=== PATIENT | male | born 1945 | race Caucasian/White ===

== ENCOUNTER 2021-03-05 15:28 | Inpatient (IN) | payer OTHER ==
[~2021-03-05] VITALS: Ht 170.2 cm; Wt 75.4 kg
--- NOTE | 2021-03-06 07:21 | NUR ---
ADMISSION SUMMARY Pt was admitted to [facility] from [facility] on 03/06/21 at 0507. Vital signs were obtained; results within normal limits. Skin assessment was performed; results unremarkable. Pt was cooperative with admission process. Pt signed voluntary treatment form. Pt stated he does not currently have thoughts to harm himself and contracted for safety with staff. Pt is high fall risk. Fall precautions are in place. Will continue to monitor.
[2021-03-06 08:21] VITALS: BP 126/80
[2021-03-06 08:22] LABS: CHOLESTEROL 147 mg/dL (<200); HDL CHOLESTEROL 50 mg/dL (>40); LDL CHOLESTEROL 79 mg/dL (<100); TC:HDL 2.9 Ratio (Not establshd); TRIGLYCERIDE 93 mg/dL (<150); VLDL 19 mg/dL (<40)
[2021-03-06 08:23] VITALS: BP 126/80
[2021-03-06 09:09] VITALS: BP 126/80
--- NOTE | 2021-03-06 10:11 | NUR ---
RESUMMED CARE FROM OVERNIGHT SHIFT THIS AM, PATIENT ALERT ORIENTED TIMES 4. PATIENT DENIES SI/HI/AH/VH AT PRESENT, PATIENT ATE BREAKFAST TOOK MEDICATION WITHOUT INCIDENCE. PATIENTS ABDOMEN SOFT BOWEL SOUNDS PRESENT, PATIENTS LUNGS CLEAR. PATIENT DENIES DEPRESSION BUT HAS ANXIETY WHICH HE RATES A 5. PATIENT CALM COOPERATIVE PARTICIPATED IN GROUPS. WILL CONTINUE TO MONITOR PATIENT FOR SAFETY AND BEHAVIORS.
[2021-03-06 11:32] LABS: INR 2.59
[2021-03-06 19:06] VITALS: BP 110/51
[2021-03-06 19:07] VITALS: BP 149/62
[2021-03-06 20:30] VITALS: BP 149/62
--- NOTE | 2021-03-07 01:34 | NUR ---
PATIENT HAS BEEN UP IN HIS ROOM THIS EVENING. HE IS A/0X4. PATIENT WEARS 3 LIDODERM PATCHES AND ALL WERE REMOVED PER PROTOCOL AT HS.PATIENT CAME TO NURSE STATION AND REQUESTED TO CALL HIS . PATIENT SPOKE WITH AND WENT BACK TO HIS ROOM. HE DID VISIT WITH ANOTHER PATIENT IN THE HALLWAY AND THEY DISCUSSED THEIR PARKINSONS. PATIENT HAS BEEN CALM AND COOPERATIVE. HE WAS GIVEN NORCO AT HS FOR 6/10 PAIN IN BACK AND NECK. PATIENT IS INDEPENDENT WITH CARES. PATIENT TOOK MEDS WHOLE WITH WATER. HE DOES HAVE TREMORS IN BILATERAL HANDS. AMANTIDINE AND WARFARIN STARTED THIS EVENING AT HS. DENIES SI/HI/AVH. BED IN LOW POSITION. ROUTINE ROUNDS TO ASSESS SAFETY AND STATUS OF PATIENT.
[2021-03-07 09:03] VITALS: BP 123/73
--- NOTE | 2021-03-07 10:57 | NUR ---
Nutrition: pt admitted to [facility] with SI, depression. Hx Parkinsons. Hand tremors noted. Pt eating very well, 100% of meals. Does need some assistance with opening containers etc but able to feed self. Reports UBW 170#, current 166#. Pt feels weight loss attributed to length of time it takes him to eat and need for assist. He refuses supplements and is not concerned about this loss. On Vitamin D/C, MVI, folic acid. Consider low nutrition risk at this time.
--- NOTE | 2021-03-07 12:16 | NUR ---
APPROACHED NURSES STATIN AT APPROX 0815 REQUESTING MEDICATION FOR ANXIETY. DID SPEAK WITH THIS NURSE 1;1 AT THIS TIME REPORTING FEELING AN INTERNAL RESTLESSNESS AND STATES " I CAN'T SIT STILL-I HAVE BEEN PACING UP AND DOWN THE HALLWAYS" TEARFUL-STATING "THIS IS THE WORSE I HAVE EVER FELT AND I WANT TO BE SURE THE DR KNOWS ABOUT IT" DENIES SI/SH/HI- KLONOPIN 1MG PO PRN AT APPOX 0830 FOR ABOVE REPORTED-WHEN ASKED ABOUT WHAT ELSE HE NEEDED OR THOUGHTNWOULD HELP IN REDUCING ANXIETY HE REPORTS WANTING A SHOWER"I HAVEN'T HAD ONE SINCE I GOT HERE" WAS ASSISTED WITH SHOWER AND STATES FEELS"MUCH BETER" UPON REASSESSMENT AT 1000. REQUESTED AND RECEIVED NORCO 5/325PO PRN AT 1030 FOR JOINT PAIN RATED A 6 ON 1-10 SCALE.
[2021-03-07 14:00] LABS: INR 2.59
--- NOTE | 2021-03-07 14:14 | NUR ---
Phone call to patient's , Jeanette Muhammad, on house and work number - Voice message regarding scheduling family meeting.
--- NOTE | 2021-03-07 15:14 | NUR ---
ITZEL and Dr. Schafer introduced themselves to the patient.
--- NOTE | 2021-03-07 19:05 | NUR ---
HAS BEEN VISIBLE IN DAYROOM MAJORITY OF SHIFT WATCHING TV/ATTENDING SCHEDULED GROUPS. DID REPORT INCREASED ANXIETY,RESTLESSNESS,RUMINATIVE THOUGHTS STARTING AROUND 1845-DID COMPLY WITH NURSES SUGGESTIONS AND ATTEMPTED SELF SOOTHING/RELAXATION TECHNIQUES BUT REPORTS MINIMAL RELIEF AT 1900 AND STATES AMNXIETY SYMPTOMS ARE I NCREASING-DR MCKEE CONTACTED ORDERS RECEIVED FOR KLONOPIN 1MG X 1 NOW. RECEIVED NORCO5/325 PO PRN AT 1850 FOR PAIN IN BACK OF HEAD RATED A 6 ON 1-10 SCALE.
[2021-03-07 19:37] VITALS: BP 105/56
[2021-03-07 20:20] VITALS: BP 105/56
--- NOTE | 2021-03-08 00:54 | NUR ---
PATIENT A LITTLE MORE ANXIOUS TONIGHT. HE WAS GIVEN HIS CLONAZEPAM AT BEDTIME TONIGHT. HE WAS FINE WHILE HE WAS SITTING UP WATCHING COLLEGE FOOTBALL WITH ANOTHER MALE PATIENT. HE BECOMES MORE ANXIOUS WHEN LEFT ALONE TO HIS THOUGHTS. HE DOES STATE THAT HE DOES NOT FEEL SUICIDAL. HE IS CONCERNED ABOUT ALL THE ANTIDEPRESSANT CHANGES. HE WONDERS IF HE GAVE PROZAC ENOUGH TIME TO TRY OUT. HE TOOK IT FOR 3 WEEKS. HE IS INDEPENDENT WITH CARES. HE IS A/0X4. HE IS PLEASANT AND COOPERATIVE. PATIENT IS SLEEPING AT THIS TIME. ROUTINE ROUNDS TO ASSESS STATUS AND SAFETY OF PATIENT. CONTINUING TO MONITOR. PATIENT TOOK HIS MEDS WHOLE WITH WATER AND APPLESAUSE TO HELP GET PILL THAT WOULD NOT GO DOWN.
[2021-03-08 10:10] VITALS: BP 108/59
[2021-03-08 13:18] VITALS: BP 108/59
--- NOTE | 2021-03-08 15:42 | NUR ---
Family meeting via phone - Present for the meeting were the patient, ITZEL Rodriguez and patient's via phone. The patient reports that he slept well. He is a little nervous but not as bad as before. The patient also reported that he dressed himself which his , Jeanette, was happy about. The patient acknowledges having thoughts of not being here but did not intend on taking any measures to complete. The patient denies any current SI. The patient and his have looked into hospital beds as the patient's Parkinson's is becoming more pronounced. The doctor mentioned a space such as [facility] for the patient and his . However, the family's son resides in the home. The son has schizophrenia; however, it is being well managed. The patient will be discharged tomorrow, 03/09/2021, at 11:30AM. The SW will schedule a psychiatric appointment. The patient has an upcoming appointment with his doctor, Dr. Cabezas, on 04/13/2021. SW talked to the patient after the family meeting to gather information for assessment. The patient reports to having 4 sisters and 3 brothers. The patient is the second oldest. He has one older sister. The family was close and continues to be close. The patient was born in [place], [place] and raised in [place], [place]. His family mostly resides in those two areas. The patient graduated from high school and earned a Bachelors in Science from [employer]. He worked for the [employer] and then for [employer] in [place], [place]. The patient has not been in the . The patient has four sons, two from his first marriage and two from the second marriage. There is no history of violence in the marriages. The patient is retired. He receives approximately $3000 monthly from [employer] senior living. In their free time, the patient and his enjoys going out to eat, watching movies, Western TV shows ([employer]hop) and listening to [employer] music. The patient identifies as Mormon. He denies any drug, alcohol use and any past SI/HI attempts. Phone call to Dr. Doroteo Jeong, psychiatrist ([phone]) - Scheduled appointment for 03/14/2021 at 11:30AM.
--- NOTE | 2021-03-08 18:42 | NUR ---
Noah was alert and oriented x4 this shift. He was calm, cooperative, pleasant, and appropriate. He presented with an appropriate affect and spoke to this RN about how he was looking forward to being discharged tomorrow and him and his are going to go to [facility] once she picks him up. He expressed that he is no longer in a panic and feels as though being here had helped him appreciate what he does have. He was medication and meal compliant, without difficulty. He denied SI/HI/VIERA and remained safe while on the unit. Pt was educated regarding what to expect with discharge tomorrow and reciprocated education given.
[2021-03-08 19:12] VITALS: BP 111/63
--- NOTE | 2021-03-08 23:01 | NUR ---
PATIENT CARE WAS RESUMED AT 1900. HE WAS IN HIS ROOM AND HE AMBULATES. ALERT AND ORIENTED X4.LUNGS ARE CLEAR, BS ACTIVE X4 QUAD.HE IS CONTININET OF BOWEL AND BLADDER. TOOK HIS MEDS WHOLE AND DENIES PAINS/SI/AVH/HI. HE WAS CONCERN ABOUT HIS COUMADIN ADMIMISTRATION AND NURSE EXPLAINED ORDER AND HE STATES A GOOD UNDERSTANDING. BED IS LOW, LOCKED AND F95IFQISAN CHECK IS ONGOING. CONTINUE CARE,
--- NOTE | 2021-03-09 08:06 | NUR ---
Phone call to Jeanette for the information for the preferred pharmacy. The family utilizes [facility] in [place], [place].
[2021-03-09 09:03] VITALS: BP 110/57
[2021-03-09] MEDS ORDERED: WARFARIN SODIUM5 MG PO (09:04)
[2021-03-09] MEDS ORDERED: FISH OIL 1,0001 EAC5 PO (09:06)
[2021-03-09] MEDS ORDERED: METOPROLOL SUCC25 M1 PO (09:07)
[2021-03-09] MEDS ORDERED: BAYER CHEWABLE81 MG PO (09:08)
[2021-03-09] MEDS ORDERED: HYDROCODON-ACE1 EAC7 PO (09:09)
[2021-03-09] MEDS ORDERED: PROZAC20 MG PO (09:10)
[2021-03-09] MEDS ORDERED: COLACE 100 MG100 MG PO (09:11)
[2021-03-09] MEDS ORDERED: AMANTADINE 100100 MG PO (09:11)
[2021-03-09] MEDS ORDERED: KONSYL6 GM PO (09:12)
[2021-03-09] MEDS ORDERED: PROTONIX 20 MG20 M1 PO (09:13)
[2021-03-09] MEDS ORDERED: FOLIC ACID0.4 MG PO (09:14)
[2021-03-09] MEDS ORDERED: OXYBUTYNIN 5 MG5 M1 PO (09:14)
[2021-03-09] MEDS ORDERED: VITAMIN D310 MC1 PO (09:15)
[2021-03-09] MEDS ORDERED: VITAMINC500 PO (09:15)
[2021-03-09] MEDS ORDERED: A THRU Z ADVAN1 EAC1 PO (09:16)
[2021-03-09] MEDS ORDERED: GLUCOSAMINE HC500 MG PO (09:16)
[2021-03-09] MEDS ORDERED: MELATONIN5 M1 PO (09:17)
[2021-03-09 09:38] VITALS: BP 110/57
[2021-03-09 10:41] VITALS: BP 110/57
--- NOTE | 2021-03-09 11:25 | NUR ---
Fax sent to psychiatrist and therapist - Continuation of care after discharge information.
--- NOTE | 2021-03-09 11:51 | NUR ---
Noah was alert and oriented x4 this shift. He was calm, cooperative, pleasant, and appropriate with an appropriate affect. He denied SI/HI/VIERA and expressed much improvement since admission. He stated that he was unable to go to the bathroom himself, feed himself, or dress himself prior to coming in which he was now able to do independently. He stated he did much reflection and has things he is going to change when he is home. He was medication and meal compliant prior to discharge. D/C summary was reviewed with pt and all questions answered. He was encouraged to call if him or his have any questions once discharged. He was stable upon discharge and left the unit at 1135. He was escorted with this RN and his to the main enterance. Pt d/c'd with all belongings.
--- NOTE | 2021-03-11 08:36 | D ---
[facility] [place] [address] DISCHARGE SUMMARY Name: JK HENLEY Room #: 521B-B [facility] M.R.#: [id number] Admission: 03/06/21 Attend Phys: Marysol Arciniega MD Discharge: 03/09/21 Date of : 45 Report #: [id number] THIS REPORT FOR: cc: Jair Augustine MD, Michael MD Kerstein,Eliu Hill DO ~ DATE OF SERVICE: 03/09/2021 INPATIENT PSYCHIATRIC DISCHARGE SUMMARY ATTENDING PSYCHIATRIST: Eliu Schafer DO FLAVOR MAKER: Junito Mandel MD DISCHARGE DIAGNOSES: 1. Major depressive disorder, single episode, severe degree, improved. 2. Mild neurocognitive disorder based on SLUMS score of 23/30 besides Parkinson's disease. MEDICAL COMORBIDITIES: As follows: Hypertension, aortic stenosis, status post mechanical aortic valve replacement, on an indefinite systemic anticoagulation, macular degeneration. The patient is discharging home to live with his . Aftercare is as follows: See movement disorder doctor, Dr. Arciniega on 04/13/2021. The patient has an appointment with Dr. Doroteo Buenrostro, psychiatrist, at [facility] on 03/14/2021 at 11:30 a.m. He wants to pursue psychotherapy through Dr. Buenrostro, that was not scheduled otherwise. DIET: Regular. ACTIVITY LEVEL: As tolerated. Recommend against driving at this point, he has macular degeneration. DISCHARGE MEDICATIONS: Warfarin 5 mg oral daily at bedtime, omega-3 fatty acids, fish oil 1000 mg oral daily for supplementation, metoprolol succinate 12.5 mg oral daily for heart and help with tremor, aspirin 81 mg oral daily at 0900, hydrocodone 5/325 mg q. 6 hours p.r.n. for severe pain, script Rx given for #15; fluoxetine 20 mg oral daily for depression; memantine 100 mg oral twice daily for tremor; Docusate 100 mg oral twice daily for bowel motility; psyllium 6 grams oral daily for fiber supplement; pantoprazole 40 mg oral twice daily for GERD; oxybutynin chloride 5 mg oral daily for incontinence; folic acid 800 mcg oral daily for supplementation; ascorbic acid 500 mg oral daily for supplementation; vitamin D3 of 400 International Units oral daily; multivitamin 1 tab oral daily; glucosamine 600 mg oral daily for osteoarthritis and melatonin 5 mg oral at bedtime for sleep. LABORATORY DATA: Significant laboratories this admission. INR was checked twice on the and and interestingly exact same results, PTT 27, INR [address] [address] DISCHARGE SUMMARY Name: KJ HENLEY Room #: [facility] ..#: [id number] Admission: 03/06/21 Attend Phys: Marysol Arciniega MD Discharge: 03/09/21 Date of : 45 Report #: [id number] 2.59, both times. Other labs, hemoglobin A1c 6.0. Triglycerides 93, cholesterol 147. LDL 79, HDL 50. B12 level 456. TSH 2.713. COVID-19 serology was not detected on the 03/05/2021 to 03/08/2021. REASON FOR ADMISSION: Back on the or so admitted last week by Dr. Arciniega, 75-year-old male had suicidal ideation without plan, did not want to burden his family. He has Parkinson's disease which has not been helped by routine measures, had difficulty doing his activities of daily living. The patient says while he is an outside hospital, he was started on memantine and has been helpful. He admitted to intermittent sadness, feeling anxious, problems with sleep. HOSPITAL COURSE: The patient was admitted to Geriatric Psychiatry Unit. When I picked up this case, the patient was on fluoxetine 10 mg daily and I increased that to 20 mg oral daily. The risks, benefits, alternatives to SSRI therapy form of treatment discussed. In addition, the patient was having from anxiety. We treated that symptomatically with Klonopin, but did not discharge him on a benzodiazepine. We had a family meeting with his . We discussed the progressive chronic nature of the disease and the possibility of him evolving into a dementia. The day of discharge, the patient was not suicidal or homicidal. During family meetings, we discussed them relocating to one-four level home. We discussed adaptive devices for the current home. per firearms were removed from david and secured elsewhere. PHYSICAL EXAMINATION: VITAL SIGNS: On day of discharge as follows: Temperature 36.6, pulse 73, respirations 17, BP 110/57, weight 75.33 kilos, BMI 26. GENERAL: Narrow, slow gait, bilateral upper extremity hand tremors. MENTAL STATUS EXAMINATION: This is a well-developed, ill-appearing male, apparently stated age. Attention fair. Concentration fair. Speech normal in rate. Thought process- linear, goal directed, thought content focused on discharge. No radiating symptoms. Improved mood.congruent, euthymic, fir range Memory not formally tested on day of discharge. Some slight impairment. Insight and judgment are fair. Fund of knowledge above average. PROGNOSIS: For this patient is guarded given the Parkinson's disease, mild neurocognitive disorder. <ELECTRONICALLY SIGNED> By: Eliu Schafer, 03/11/21 0836 1943 07 Eliu Schafer DO /nt
== END 2021-03-09 11:35 | disposition home or self-care (01) | DRG 885 ==
LOC: SBH
PROVIDERS: Psychiatry & Neurology Psychiatry; ADMIT Psychiatry & Neurology Psychiatry; ATTEND Psychiatry & Neurology Psychiatry
DX: F32.2 Major depressive disorder, single episode, severe without psychotic features (principal); R45.851 Suicidal ideations; F41.9 Anxiety disorder, unspecified; G20 Parkinson's disease; H35.30 Unspecified macular degeneration; I35.0 Nonrheumatic aortic (valve) stenosis; Z20.822 Contact with and (suspected) exposure to COVID-19; G31.84 Mild cognitive impairment of uncertain or unknown etiology; K21.9 Gastro-esophageal reflux disease without esophagitis; I25.10 Atherosclerotic heart disease of native coronary artery without angina pectoris; I10 Essential (primary) hypertension
CPT/HCPCS: 10880

== ENCOUNTER → 2021-03-05 | Emergency (ER) | payer OTHER ==
[~2021-03-05] VITALS: Ht 175.3 cm; Wt 70.3 kg
[~2021-03-05] MED LIST: A THRU Z ADVAN1 EAC1 PO; AMANTADINE 100100 MG PO; BAYER CHEWABLE81 MG PO; COLACE 100 MG100 MG PO; FISH OIL 1,0001 EAC5 PO; FOLIC ACID0.4 MG PO; GLUCOSAMINE HC500 MG PO; HYDROCODON-ACE1 EAC7 PO; KONSYL6 GM PO; MELATONIN5 M1 PO; METOPROLOL SUCC25 M1 PO; OXYBUTYNIN 5 MG5 M1 PO; PROTONIX 20 MG20 M1 PO; PROZAC20 MG PO; VITAMIN D310 MC1 PO; VITAMINC500 PO; WARFARIN SODIUM5 MG PO
--- NOTE | ~2021-03-05 | EMS ---
[address] [address] EMS Patient Care Report Name: KJ HENLEY Room #: REG GRACY Gracia#: [id number] Admission: 03/05/21 Attend Phys: Discharge: Date of : 45 Report #: [id number] THIS REPORT FOR: //name// Report Transmitted: 03/09/2021 09:45 EMS Care Summary [place], [place]/[facility] Incident [id number] @ 03/05/2021 21:07 Incident Location [facility] 3031 Patient KJ HENLEY Male, 75 Years 1945 Patient Address [address] [id number] Patient History Behavioral/Psychiatric Disorder,Dementia,Parkinson's Disease,Depression, Patient Allergies No known allergies, Patient Medications Baclofen, Fluoxetine, Duloxetine, Hydrocodone, Calcium, Nexium, Lidocaine, Metoprolol, Warfarin, Chief Complaint SUICIDAL IDEATIONS Disposition Transported No Lights/[place] Dispatch Reason Transfer/Interfacility/Palliative Care Transported To [facility] Narrative PT IS A 75 YEAR OLD MALE WHO WAS AN INPATIENT. PT WAS HAVING A MENTAL CRISIS AT HOME. PT WAS BOUGHT IN AFTER HE TRIED TO COMMIT SUICIDE. PT IS BEING DISCHARGED TO [facility] FOR FURTHER ASSISTANCE. PT WAS IN HIS [address] [address] EMS Patient Care Report Name: KJ HENLEY Room #: REG [facility]#: [id number] Admission: 03/05/21 Attend Phys: Discharge: Date of : 45 Report #: [id number] ROOM PACING UPON EMS ARRIVAL. PT WAS ABLE TO AMBULATE TO [facility] ON HIS OWN. PT WAS SECURED TO THE GURCOLUMBIA BY SEAT BELTS AND WINGS IN THE UPRIGHT POSTITION. PT WAS WEARING HIS MASK AND EMS USED PROPER PPE ON THIS CALL. PT DENIED ANY PAIN. PT TRANSPORTED [place] [facility] WITHOUT ANY PROBLEMS PT WAS QUIET DURING TRANSPORT. PT REMAINED SECURED TO THE GURCOLUMBIA BY SEAT BELTS AND WINGS IN THE UPRIGHT POSTITION. PT HAS A COUPLE OF BELONGINGS BAGS (CONTENT UNKNOWN). PT WAS TAKEN INTO THE HOSPITAL ON THE GURNEY. PT WAS LEFT IN THE ER. PT HAS TO HAVE A COVID SWAB BEFORE THEY CAN GO UPSTAIRS. PT CARE AND PAPERWORK TRANSFERRED OVER TO NURSING STAFF WITHOUT ANY PROBLEMS. PT HAD NO COMPLAINTS AT THE TIME OF TRANSPORT. Initial Vitals @22:09P: 74,R: 20,BP: 134/75,Pain: 0/10,GCS: 15,SpO2: 96,Revised Trauma: 12, @22:27P: 71,R: 18,BP: 114/87,Pain: 0/10,GCS: 15,SpO2: 95,Revised Trauma: 12, Assessments @21:21MENTAL:Person Oriented,Time Oriented,Event Oriented,Place Oriented,SKIN:No Abnormalities,HEENT:Head/Face: No Abnormalities,Eyes: No Abnormalities,Neck/Airway: No Abnormalities,LUNG SOUNDS:ABDOMEN:PELVIS//GI:EXTREMITIES:Capillary Refill: Right Upper: < 2 Sec,Left Arm: No Abnormalities,Right Arm: No Abnormalities,Left Leg: No Abnormalities,Right Leg: No Abnormalities,PULSE:Radial: 2+ Normal,NEURO:No Abnormalities,@22:24MENTAL:Time Oriented,Person Oriented,Event Oriented,Place Oriented,SKIN:No Abnormalities,HEENT:Head/Face: No Abnormalities,Eyes: No Abnormalities,Neck/Airway: No Abnormalities,LUNG SOUNDS:ABDOMEN:PELVIS//GI:EXTREMITIES:Capillary Refill: Right Upper: < 2 Sec,Left Arm: No Abnormalities,Right Arm: No Abnormalities,Left Leg: No Abnormalities,Right Leg: No Abnormalities,PULSE:Radial: 2+ Normal,NEURO:No Abnormalities, Impression Behavioral/psychiatric episode Procedures @21: Stretcher Response: Unchanged @: BLS Assessment Response: Unchanged Timeline 16:52,Call Received 16:52,Dispatch Notified 21:07,Dispatched 21:08,En Route 21:16,On Scene :,At Patient [address] [address] EMS Patient Care Report Name: KJ HENLEY Ronan Room #: REG GRACY Gracia#: [id number] Admission: 03/05/21 Attend Phys: Discharge: Date of : 45 Report #: [id number] 21:,Stretcher,Response: Unchanged :21,BLS Assessment,Response: Unchanged 22:09,BP: 134/75 M,PULSE: 74,RR: 20 R,SPO2: 96 Ox,ETCO2: ,BG: ,PAIN: 0,GCS: 15, 22:13,Depart Scene 22:27,BP: 114/87 M,PULSE: 71,RR: 18 R,SPO2: 95 Ox,ETCO2: ,BG: ,PAIN: 0,GCS: 15, 22:34,At Destination 23:02,Call Closed Disclaimer v1.1 Copyright 2021 Lola Pirindola This EMS Care Summary contains data elements from the applicable legal record (which may be displayed differently). It is designed to provide pertinent information for the following purposes: continuity of care, clinical quality, and state data reporting. The complete legal record is available to ED staff and administrators of the receiving hospital in [employer]'s Patient Tracker. All data is provided "as is."
[2021-03-05 22:39] VITALS: BP 115/67
== END ==
LOC: ER 22:38
PROVIDERS: Emergency Medicine
DX: F32.9 Major depressive disorder, single episode, unspecified (principal); Z20.822 Contact with and (suspected) exposure to COVID-19; G20 Parkinson's disease; K21.9 Gastro-esophageal reflux disease without esophagitis; I10 Essential (primary) hypertension